=== PATIENT | female | born 1995 | race African-American/Black ===

== ENCOUNTER 2016-12-08 07:42 | Emergency (ER) | payer OTHER ==
[~2016-12-08] VITALS: Ht 160 cm; Wt 69.4 kg
[~2016-12-08 07:42] MED LIST: CYCL-319 PO; D-ME118S6 PO; DOCU-144 PO; HYDR-3498 PO; HYDR-3720 PO; HYDR-906 PO; HYDR25SU24 PR; METH-70 PO; NITR-58 PO; PRED20TA PO; TRAM50TA2 PO
[2016-12-08 07:46] VITALS: Ht 160 cm; Wt 69.4 kg
[2016-12-08 08:53] LABS: ADD SCAN DIFF NO
[2016-12-08 08:56] LABS: BASOPHILS % 0.4 % (0.0-2.0); EOSINOPHILS # 0.1 10^3/ul (0.0-0.5); EOSINOPHILS % 2.2 % (0.0-7.0); HEMATOCRIT 37.5 % (37.0-47.0); HEMOGLOBIN 12.3 g/dl (12.0-16.0); LYMPHOCYTES # 2.5 10^3/ul (0.8-2.9); LYMPHOCYTES % 55.1 % (15.0-51.0); MEAN CORPUSCULAR HEMOGLOBIN 30.8 pg (29.0-33.0); MEAN CORPUSCULAR HGB CONC 32.8 g/dl (32.0-37.0); MEAN PLATELET VOLUME 9.4 fl (7.4-10.4); MONOCYTE # 0.3 10^3/ul (0.3-0.9); MONOCYTES % 5.7 % (0.0-11.0); NEUTROPHIL # 1.7 10^3/ul (1.6-7.5); NEUTROPHILS % 36.4 % (39.0-77.0); PLATELET COUNT 262 10^3/UL (140-415); RED BLOOD COUNT 3.99 10^6/ul (4.20-5.40); RED CELL DISTRIBUTION WIDTH 12.5 % (11.5-14.5); WHITE BLOOD COUNT 4.5 10^3/ul (4.8-10.8)
[2016-12-08 09:18] LABS: ADD UMIC YES; URINE BILIRUBIN (Dip) NEGATIVE (NEGATIVE); URINE BLOOD (Dip) 3+ (NEGATIVE); URINE COLOR DK. RED (YELLOW); URINE GLUCOSE (Dip) NEGATIVE (NEGATIVE); URINE KETONES (Dip) NEGATIVE (NEGATIVE); URINE LEUKOCYTE ESTERASE (Dip) NEGATIVE (NEGATIVE); URINE NITRITE (Dip) NEGATIVE (NEGATIVE); URINE TOTAL PROTEIN (Dip) 2+ (NEGATIVE); URINE UROBILINOGEN (Dip) 1.0 E.U./dL (0.1-1.0)
[2016-12-08] MEDS ORDERED: ACETAMINOPHEN 500 MG TAB PO STA (09:31)
[2016-12-08 09:34] LABS: BACTERIA,URINE MODERATE; MUCUS,URINE FEW
[2016-12-08 09:35] LABS: URINE RBCS >200 /HPF (0)
--- NOTE | 2016-12-08 09:37 | RADRPT ---
PROCEDURE: US Pelvis. CLINICAL INDICATION: Vaginal bleeding TECHNIQUE: Multiple sonographic images of the pelvis were obtained utilizing a transabdominal and endovaginal technique. The images were reviewed on a PACS workstation. COMPARISON: 12/28/2013 FINDINGS: The uterus is normal in size with a normal appearance of the myometrium. The uterus measures 8.0 x 3.9 x 6.0 cm. The endometrial stripe is homogeneous in appearance and has the thickness of 8 mm. The ovaries are normal in size and echogenicity. Normal Doppler flow is identified in both ovaries. The right ovary measures 3.6 x 1.7 x 2.0 cm. The left ovary measures 3.4 x 1.4 x 2.2 cm. No free fluid is present within the pelvis. RPTAT: AA IMPRESSION: Unremarkable pelvic ultrasound. No evidence of intrauterine gestation. .Ashvin Tai MD, Date Time Electronically viewed and signed by .Ashvin Tai MD, on 12/08/2016 09:37 .S/
[2016-12-08] MEDS ORDERED: ACET325T33 PO (10:23)
[2016-12-08 10:33] VITALS: BP 118/74; PULSE 75; RESP 19; TEMP 98.2
--- NOTE | 2016-12-08 14:16 | ERD ---
DATE OF SERVICE: 12/08/2016 HISTORY OF PRESENT ILLNESS: The patient is a 21-year-old female coming in complaining of abdominal pain with some vaginal bleeding. She states that she had a medical performed on 11/22. At the time, she is approximately 7 weeks . Her last normal menstrual period was 10/06/2016. She had medication given to her at [facility] on [address]. [facility] which she did not go to. She states that she did have some bleeding afte r taking the medication which resolved. However, this morning she woke up with heavy bleeding and c lots. She has some generalized abdominal pain. No fevers, no vomiting, no back pain, no dysuria. G2, P1, A1. PAST MEDICAL HISTORY: Denies medical problems. ALLERGIES: IBUPROFEN. SURGICAL HISTORY: Denies. SOCIAL HISTORY: Denies. REVIEW OF SYSTEMS: A 12-point review of systems was done. Refer to HPI for positives, all other sy stems negative. PHYSICAL EXAMINATION: VITAL SIGNS: Temperature is 98.1, pulse 71, blood pressure 125/84, respiratory 16, O2 saturation 99 % on room air. Pain intensity 10/10. GENERAL: The patient is well appearing, well nourished. No acute distress. HEART: Regular rate and rhythm. No murmurs, clicks, rubs or gallops. No S3 or S4. CHEST: Clear to auscultation bilaterally. There are no rales, wheezes or rhonchi. HEENT: Atraumatic. Conjunctivae are pink. Pupils equal, round, and reactive to light. There is n o scleral icterus. Tympanic membranes clear bilaterally. Oropharynx clear. No nystagmus or photop hobia. ABDOMEN: Soft, nontender and nondistended. Good bowel sounds. No rebound or guarding. No gross p eritonitis. No gross organomegaly or masses. No Corrales sign or McBurney point tenderness. SKIN: There is no apparent rash or petechia. The skin is warm and dry. BACK: No midline or flank tenderness. GENITOURINARY: The patient does have some bleeding noted within the vaginal vault with no pooling. Os appears to be closed. No adnexal tenderness, no CMT. EMERGENCY ROOM COURSE: The patient had blood work done in ER. CBC was within normal limits. Beta quant was 126. The patient's urine showed 3+ hemoglobin, negative nitrites. The patient's blood ty pe was B positive, and obstetric ultrasound showed unremarkable pelvic ultrasound, no evidence of in trauterine gestation. DIAGNOSES: 1. Vaginal bleeding. 2. Incomplete . MEDICAL DECISION MAKING: I have low suspicion for septic products. The patient may have retained p roducts. However, they are unseen on ultrasound. The patient does continue to have a slightly elev ated beta quant. I recommended patient to return in 2 days so we could better monitor her beta dileep t levels and determine if there is a risk for possible retained products. The patient is nontoxic a ppearing, and exam is nonconcerning with normal vital signs today. I have low suspicion for hemodyn amic instability, and patient does not require RhoGAM injection as she is not and has Rh po sitive. No signs of UTI. DISCHARGE: The patient is discharged stable. The patient is given a prescription for Tylenol and t old to follow up with primary care within 1 to 2 days for re-evaluation. The patient is told if sym ptoms progress or worsen to return to the ER. All other questions answered at time of discharge. D ischarge summary given at time of departure. The patient understood and complied with plan. Dictated By: GLORIA RICHARDSON for BETTY WAY/MARK Conf#: [id number] DID#: [id number]
== END 2016-12-08 10:34 | disposition home or self-care (01) ==
LOC: FTE 07:42
DX: O03.4 Incomplete spontaneous abortion without complication (principal)
CPT/HCPCS: 36415; 76801; 81001; 81003; 84702; 85025; 86900; 86901; Z7502; Z7610

== ENCOUNTER 2016-12-10 06:50 | Emergency (ER) | payer OTHER ==
[~2016-12-10] VITALS: Ht 157.5 cm; Wt 70.0 kg
[~2016-12-10 06:50] MED LIST changes: +ACET325T33 PO
[2016-12-10 06:51] VITALS: Ht 157.5 cm; Wt 70.0 kg
[2016-12-10 07:59] LABS: ADD SCAN DIFF NO
[2016-12-10 08:09] LABS: BASOPHILS % 0.5 % (0.0-2.0); EOSINOPHILS # 0.1 10^3/ul (0.0-0.5); EOSINOPHILS % 3.5 % (0.0-7.0); HEMATOCRIT 38.8 % (37.0-47.0); HEMOGLOBIN 12.5 g/dl (12.0-16.0); LYMPHOCYTES # 2.1 10^3/ul (0.8-2.9); LYMPHOCYTES % 57.6 % (15.0-51.0); MEAN CORPUSCULAR HEMOGLOBIN 30.3 pg (29.0-33.0); MEAN CORPUSCULAR HGB CONC 32.2 g/dl (32.0-37.0); MEAN CORPUSCULAR VOLUME 94.2 fl (82.0-101.0); MEAN PLATELET VOLUME 9.7 fl (7.4-10.4); MONOCYTE # 0.2 10^3/ul (0.3-0.9); NEUTROPHIL # 1.2 10^3/ul (1.6-7.5); NEUTROPHILS % 32.4 % (39.0-77.0); PLATELET COUNT 255 10^3/UL (140-415); RED BLOOD COUNT 4.12 10^6/ul (4.20-5.40); RED CELL DISTRIBUTION WIDTH 12.8 % (11.5-14.5); WHITE BLOOD COUNT 3.7 10^3/ul (4.8-10.8)
[2016-12-10 08:11] LABS: ADD UMIC YES; URINE BILIRUBIN (Dip) NEGATIVE (NEGATIVE); URINE BLOOD (Dip) 1+ (NEGATIVE); URINE COLOR LT. YELLOW (YELLOW); URINE GLUCOSE (Dip) NEGATIVE (NEGATIVE); URINE KETONES (Dip) NEGATIVE (NEGATIVE); URINE LEUKOCYTE ESTERASE (Dip) NEGATIVE (NEGATIVE); URINE NITRITE (Dip) NEGATIVE (NEGATIVE); URINE TOTAL PROTEIN (Dip) NEGATIVE (NEGATIVE); URINE UROBILINOGEN (Dip) 0.2 E.U./dL (0.1-1.0)
[2016-12-10 08:26] LABS: BACTERIA,URINE RARE; URINE RBCS 0-2 /HPF (0)
--- NOTE | 2016-12-10 09:10 | RADRPT ---
PROCEDURE: US Pelvis. CLINICAL INDICATION: Positive and vaginal bleeding. TECHNIQUE: Multiple sonographic images of the pelvis were obtained utilizing a transabdominal and endovaginal technique. The images were reviewed on a PACS workstation. COMPARISON: 12/08/2016 ultrasound FINDINGS: The uterus is visualized and measures a 0.7 x 4.3 x 5.9.. 2 mm sonolucency within the distal endome trial canal. This may represent a small gestational sac corresponding to 4 weeks 5 days gestational age by gestational sac measurements. There is no pole or yolk sac. Given the history of vag inal bleeding, missed cannot be excluded. The endometrial complex is otherwise unremarkabl e measuring 8-9 mm in greatest thickness. Multiple Nabothian cysts. Normal Doppler blood flow in the ovaries bilaterally. There is no evidence for free fluid. The righ t ovary has a normal echotexture and measures 2.8 and 1.7 x 1.9 cm in size. The left ovary has a normal echotexture and measures 2.5 x 1.6 x 2.1 cm in size. No adnexal masses are noted. Trace free fluid in the cul-de-sac. IMPRESSION: 1. 2 mm sonolucency within the distal endometrial canal raising the question of early or m issed AB. No pole or yolk sac. Serial serum beta HCG measurements and follow-up ultrasound re commended. 2. No significant free fluid in the cul-de-sac or adnexal mass. 3. Cervical Nabothian cysts. RPTAT:AAJJ Physician Joo Date Time Electronically viewed and signed by Physician Joo on 12/10/2016 09:09 MAYELIN/
--- NOTE | 2016-12-10 10:15 | ERD ---
ER Documentation Chief Complaint Date/Time DATE: 12/10/16 TIME: 10:10 Chief Complaint pelvic pain w/light vaginal bleeding today & 2 day recheck of hcg level HPI Patient is a 21-year-old female who is , who presents to the ED with pelvic pain and light vaginal bleeding. She states that she had a medical performed on 11/22/16. She states that at the time she was 7 weeks . Her last normal menstrual period was 10/06/16. She states that she was given medication she is not sure of the name at [facility]. She states that she did not go to her follow-up appointment on 12/06/16. She states that she came to the ED on 12/08/16 for vaginal bleeding and clots. She states that she is here for repeat examination. She states she is here for repeat examination and to check up on her beta quant levels. She denies fever or chills. Denies abdominal pain, nausea, vomiting or diarrhea. She states that she does have some light pelvic pain. She states that her bleeding has markedly decreased in the last day. She denies headache or dizziness. She has no other complaints. ROS All systems reviewed and are negative except as per history of present illness. Medications Home Meds Active Scripts Acetaminophen* (Tylenol*) 325 Mg Tablet, 2 TAB PO Q8 Y for PAIN AND OR ELEVATED TEMP, #20 TAB Prov:GERRI RECINOS PA-C 12/08/16 Hydrocodone/Acetaminophen (Drain 5-325 Tablet) 1 Each Tablet, 1 TAB PO Q6H Y for PAIN, #7 TAB Prov:LIBIA SIMON PA-C 06/28/16 Hydrocortisone Acetate* (Anusol-HC*) 25 Mg/Supp.rect Supp.rect, 1 SUPP MS BID Y for HEMORROID PAIN/ITCHING, #24 SUPP.RECT Prov:LIBIA SIMON PA-C 05/18/16 Docusate Sodium* (Colace*) 100 Mg Capsule, 100 MG PO TID, #30 CAP Prov:LIBIA SIMON PA-C 05/18/16 Prednisone* (Prednisone*) 20 Mg Tab, 60 MG PO DAILY for 5 Days, TAB Prov:EMMIE VORA DO 03/03/16 Methocarbamol* (Robaxin*) 750 Mg Tablet, 750 MG PO TID, #20 TAB Prov:EMMIE VORA. DO 03/03/16 Hydrocodone Bit-Acetaminophen* (Drain*) 7.5-325 Tablet, 1 TAB PO Q4H Y for PAIN , #20 TAB Prov:EMMIE VORA A. DO 03/03/16 Hydrocodone Bit-Acetaminophen* (Drain*) 5-325 Mg Tab, 1 TAB PO Q6 Y for PAIN, # 10 TAB Prov:GT LUND PA-C 01/26/16 Cyclobenzaprine Hcl* (Cyclobenzaprine Hcl*) 10 Mg Tablet, 10 MG PO Q8 Y for MUSCLE SPASMS, #20 TAB Prov:GT LUND PA-C 01/26/16 Tramadol HCl (Tramadol HCl) 50 Mg Tablet, 50 MG PO Q4 Y for PAIN, #20 TAB Prov:GT LUND PA-C 01/26/16 Nitrofurantoin Monohyd Macrocr* (Macrobid*) 100 Mg Capsr, 100 MG PO BID for 7 Days, CAP Prov:GT LUND PA-C 01/26/16 Hydrocodone Bit-Acetaminophen* (Drain*) 5-325 Mg Tab, 1 TAB PO Q6 Y for PAIN, # 20 TAB Prov:ERLINDA PAPPAS 10/23/15 Dextromethorphan Hb-Promethazine Hcl (Promethazine DM Syrup) 180 Ml Syrup, 10 ML PO Q6H Y for COUGH, #4 OZ Prov:REMY GRIFFITH MD 10/17/15 Tramadol HCl (Tramadol HCl) 50 Mg Tablet, 50 MG PO Q6 Y for PAIN, #10 TAB Prov:REMY GRIFFITH MD 10/17/15 Allergies Allergies: Coded Allergies: ibuprofen (Verified Allergy, Intermediate, 06/28/16) PMhx/Soc Medical and Surgical Hx: pt denies Medical Hx, pt denies Surgical Hx History of Surgery: No Anesthesia Reaction: No Hx Neurological Disorder: No Hx Respiratory Disorders: No Hx Cardiac Disorders: No Hx Psychiatric Problems: No Hx Miscellaneous Medical Probl: No Hx Alcohol Use: No Hx Substance Use: No Hx Tobacco Use: No Smoking Status: Never smoker FmHx Family History: No coronary disease, No diabetes, No other Physical Exam Vitals Vital Signs Date Time Temp Pulse Resp B/P Pulse Ox O2 Delivery O2 Flow Rate FiO2 12/10/16 06:51 98.4 67 19 109/61 100 Physical Exam GENERAL: Well-developed, well-nourished female. Appears in no acute distress. HEART: Regular rate and rhythm. No murmurs, rubs or gallops. ABDOMEN: No scars, ecchymosis or rashes noted. Soft, nontender, and nondistended. Positive bowel sounds in all four quadrants. No rebound tenderness , no guarding. (-) McBurneys point tenderness. No CVA tenderness. : very light bleeding seen on exam. non tender to adnexa. no CMT. no vaginal discharge. BACK: No midline tenderness. Extremities: Equal pulses bilaterally. No peripheral clubbing, cyanosis or edema. No unilateral leg swelling. NEUROLOGIC: Alert and oriented. Moving all four extremities. 5/5 strength in all extremities. Normal speech. Steady gait. SKIN: Normal color. Warm and dry. No rashes or lesions. Capillary refill < 2 seconds Result Diagram: 12/10/16 0740 Results 24 hrs Laboratory Tests Test 12/10/16 07:40 Basophils # 0.010^3/ul Basophils % 0.5% Beta HCG, Quantitative 86.4mIU/ml Eosinophils # 0.110^3/ul Eosinophils % 3.5% Hematocrit 38.8% Hemoglobin 12.5g/dl Lymphocytes # 2.110^3/ul Lymphocytes % 57.6% Mean Corpuscular Hemoglobin 30.3pg Mean Corpuscular Hemoglobin Concent 32.2g/dl Mean Corpuscular Volume 94.2fl Mean Platelet Volume 9.7fl Monocytes # 0.210^3/ul Monocytes % 6.0% Neutrophils # 1.210^3/ul Neutrophils % 32.4% Nucleated Red Blood Cells # 0.010^3/ul Nucleated Red Blood Cells % 0.0/100WBC Platelet Count 98814^3/UL Red Blood Count 4.1210^6/ul Red Cell Distribution Width 12.8% Urine Bacteria RARE Urine Bilirubin NEGATIVE Urine Clarity CLEAR Urine Color LT. YELLOW Urine Epithelial Cells RARE Urine Glucose NEGATIVE% Urine Hemoglobin 1+ Urine Ketones NEGATIVE Urine Leukocyte Esterase NEGATIVE Urine Microscopic RBC 0-2/HPF Urine Microscopic WBC 0-2/HPF Urine Nitrite NEGATIVE Urine Specific [place] 1.015 Urine Total Protein NEGATIVE Urine Urobilinogen 0.2 E.U./dL Urine pH 8.0 White Blood Count 3.710^3/ul Procedures/MDM ER COURSE: I kept the patient and/or family informed of laboratory and diagnostic imaging results throughout the emergency room course. EKG, MONITORS, & DIAGNOSTIC IMAGING: [place] [id number] Radiology Main Line: [phone] DIAGNOSTIC IMAGING REPORT Patient: VALARIE PUGH : 1995 Age: 21 Sex: F MR #: [id number] DOS: 12/10/16 0720 Ordering MD: RYLAN HUA PA-C Location: [facility] Room/Bed: PROCEDURE: US Pelvis. CLINICAL INDICATION: Positive and vaginal bleeding. TECHNIQUE: Multiple sonographic images of the pelvis were obtained utilizing a transabdominal and endovaginal technique. The images were reviewed on a PACS workstation. COMPARISON: 12/08/2016 ultrasound FINDINGS: The uterus is visualized and measures a 0.7 x 4.3 x 5.9.. 2 mm sonolucency within the distal endometrial canal. This may represent a small gestational sac corresponding to 4 weeks 5 days gestational age by gestational sac measurements. There is no pole or yolk sac. Given the history of vaginal bleeding, missed cannot be excluded. The endometrial complex is otherwise unremarkable measuring 8-9 mm in greatest thickness. Multiple Nabothian cysts. Normal Doppler blood flow in the ovaries bilaterally. There is no evidence for free fluid. The right ovary has a normal echotexture and measures 2.8 and 1.7 x 1.9 cm in size. The left ovary has a normal echotexture and measures 2.5 x 1.6 x 2.1 cm in size. No adnexal masses are noted. Trace free fluid in the cul-de-sac. IMPRESSION: 1. 2 mm sonolucency within the distal endometrial canal raising the question of early or missed AB. No pole or yolk sac. Serial serum beta HCG measurements and follow-up ultrasound recommended. 2. No significant free fluid in the cul-de-sac or adnexal mass. 3. Cervical Nabothian cysts. RPTAT:AAJJ Lesly Brandon Physician Date Time Electronically viewed and signed by Lesly Brandon Physician on 12/10/2016 09:09 MAYEILN/ CC: RYLAN HUA PA-C LAB INTERPRETATION: CBC showed no evidence of systemic infection or severe anemia. UA showed no evidence of leukocytes, nitrites or hematuria. Urine test was negative. Beta hCG is 86. RH. Be positive. MEDICAL DECISION MAKING: This is a 21-year-old female who presents with .. Vital signs were reviewed. Patient is afebrile. Patient is not hypoxic. I consulted with Dr. Zavala who came to examine patient at bedside and did pelvic. Patient will be admitted for D/C. Patient is stable at transfer with no new complaints. Results and plan were discussed with patient. Patient has no questions and agrees with plan. Departure Diagnosis: Primary Impression: Vaginal bleeding in patient at less than 20 weeks gestation Condition: Stable RYLAN HUA PA-C Dec 10, 2016 10:15
--- NOTE | 2016-12-10 10:21 | CONS ---
Date/Time of Note Date/Time of Note DATE: 12/10/16 TIME: 10:10 Consultation Date/Type/Reason Admit Date/Time December 10, 2016 Emergency room consultation Initial Consult Date This patient is a 21 years old 2 para 1 whose last menstrual period was in October 06, 2006. She came to the emergency room with complaint of vaginal bleeding She was and had pill twice in 1 of the clinics apparently her was not complete Bit beta-hCG around 87 however ultrasound shows small amount of tissue still left inside the uterus for this reason she will be admitted and will undergo a D &C . In reviewing her past medical history, she had an spontaneous vaginal delivery 2 years ago no other pregnancies no other major medical problems or hospitalization Except a few hospital visit due to back pain. No surgery She says she is sensitive or allergic to ibuprofen and no other sensitivity or allergies On pelvic exam she has some bleeding and this was about top normal size cervix is soft no adnexal mass noted Reason for Consultation Vaginal bleeding, Incomplete Blood type Rh+ 24 HR Interval Summary Constitutional: other (low back pain), No chills, No diaphoresis, No disoriented, No febrile, No improved, No no complaints, No poor po, No requiring IVF, No requiring O2 Detailed Summary Eyes: other (Lower abdominal pain), No discharge, No no complaints, No pain, No redness, No visual change ENT: No bleeding, No congestion, No discharge, No dysphagia, No no complaints, No other, No pain, No sore throat Respiratory: No cough, No no complaints, No other, No pain, No pleuritic pain, No shortness of breath, No sputum, No wheezing Cardiovascular: No chest pain, No edema, No lightheadedness, No no complaints, No orthopenea, No other, No palpitations, No paroxysmal nocturnal dyspnea Gastrointestinal: No blood, No constipation, No decreased appetite, No diarrhea , No flatus, No nausea, No no complaints, No other, No pain, No passing stool, No vomiting Genitourinary: other (Mild vaginal bleeding. As I mentioned evidence of incomplete in early ), No bleeding, No discharge, No dysuria, No flank pain, No hematuria, No no complaints Musculoskeletal: No back pain, No bone/joint pain, No neck pain, No no complaints, No other, No restricted range of motion, No swelling Skin: No bruising, No erythema, No laceration, No no complaints, No other, No pruritis, No rash, No skin lesions Neurologic: No confusion, No dizziness, No focal-weakness, No headache, No no complaints, No other, No seizure, No syncope Endocrine: No dry skin, No no complaints, No other, No polydypsia, No polyuria , No temp intolerance Psychological: No anxiety, No confusion, No depression, No nl mood/affect, No no complaints, No other, No suicidal Exam/Review of Systems Vital Signs Vitals Vital Signs Date Time Temp Pulse Resp B/P Pulse Ox O2 Delivery O2 Flow Rate FiO2 12/10/16 06:51 98.4 67 19 109/61 100 Results Result Diagram: 12/10/16 0740 Results 24 hrs Laboratory Tests Test 12/10/16 07:40 Basophils # 0.0 Basophils % 0.5 Beta HCG, Quantitative 86.4 Eosinophils # 0.1 Eosinophils % 3.5 Hematocrit 38.8 Hemoglobin 12.5 Lymphocytes # 2.1 Lymphocytes % 57.6 H Mean Corpuscular Hemoglobin 30.3 Mean Corpuscular Hemoglobin Concent 32.2 Mean Corpuscular Volume 94.2 Mean Platelet Volume 9.7 Monocytes # 0.2 L Monocytes % 6.0 Neutrophils # 1.2 L Neutrophils % 32.4 L Nucleated Red Blood Cells # 0.0 Nucleated Red Blood Cells % 0.0 Platelet Count 255 Red Blood Count 4.12 L Red Cell Distribution Width 12.8 Urine Bacteria RARE Urine Bilirubin NEGATIVE Urine Clarity CLEAR Urine Color LT. YELLOW Urine Epithelial Cells RARE Urine Glucose NEGATIVE Urine Hemoglobin 1+ H Urine Ketones NEGATIVE Urine Leukocyte Esterase NEGATIVE Urine Microscopic RBC 0-2 Urine Microscopic WBC 0-2 Urine Nitrite NEGATIVE Urine Specific [place] 1.015 Urine Total Protein NEGATIVE Urine Urobilinogen 0.2 E.U./dL Urine pH 8.0 White Blood Count 3.7 L MADHAV WILKINS MD Dec 10, 2016 10:20
[2016-12-10 10:47] VITALS: BP 114/70; PULSE 71; RESP 16; TEMP 98.6
[2016-12-10] MEDS ORDERED: OXYCODONE/ACETAMINOPHEN (10/325) TAB PO PRN (11:30)
[2016-12-10] MEDS ORDERED: OXYCODONE/ACETAMINOPHEN (5/325) TAB PO PRN ×2 (11:30)
[2016-12-10] MEDS ORDERED: ONDANSETRON 4 MG INJ IV PRN (11:30)
== END 2016-12-10 10:49 | disposition left against medical advice (07) ==
LOC: FTE 06:50 → E/R 10:49
DX: O20.9 Hemorrhage in early pregnancy, unspecified (principal); R10.2 Pelvic and perineal pain; Z3A.01 Less than 8 weeks gestation of pregnancy
CPT/HCPCS: 36415; 76801; 76817; 81001; 84702; 85025; Z7502; Z7610; 81003

== ENCOUNTER 2016-12-11 06:43 | Emergency (ER) | payer OTHER ==
[~2016-12-11] VITALS: Ht 160 cm; Wt 70.0 kg
[2016-12-11 06:45] VITALS: Ht 160 cm; Wt 70.0 kg
--- NOTE | 2016-12-11 07:30 | ERD ---
ER Documentation Chief Complaint Date/Time DATE: 12/11/16 TIME: 07:22 Chief Complaint RECHECK ON VAG BLEED , 8 WEEKS PREG HPI Is a 21-year-old female who presents to the emergency department today for vaginal bleeding. Patient states that she had been . States she was here yesterday and that she "got scared and panicked" but now she wants to have it done. Denies any significant abdominal pain, nausea vomiting, fevers or chills. ROS All systems reviewed and are negative except as per history of present illness. Medications Home Meds Active Scripts Acetaminophen* (Tylenol*) 325 Mg Tablet, 2 TAB PO Q8 Y for PAIN AND OR ELEVATED TEMP, #20 TAB Prov:GERRI RECINOS PA-C 12/08/16 Hydrocodone/Acetaminophen (Lamont 5-325 Tablet) 1 Each Tablet, 1 TAB PO Q6H Y for PAIN, #7 TAB Prov:LIBIA SIMON PA-C 06/28/16 Hydrocortisone Acetate* (Anusol-HC*) 25 Mg/Supp.rect Supp.rect, 1 SUPP MI BID Y for HEMORROID PAIN/ITCHING, #24 SUPP.RECT Prov:LIBIA SIMON PA-C 05/18/16 Docusate Sodium* (Colace*) 100 Mg Capsule, 100 MG PO TID, #30 CAP Prov:LIBIA SIMON PA-C 05/18/16 Prednisone* (Prednisone*) 20 Mg Tab, 60 MG PO DAILY for 5 Days, TAB Prov:EMMIE VORA DO 03/03/16 Methocarbamol* (Robaxin*) 750 Mg Tablet, 750 MG PO TID, #20 TAB Prov:EMMIE VORA DO 03/03/16 Hydrocodone Bit-Acetaminophen* (Lamont*) 7.5-325 Tablet, 1 TAB PO Q4H Y for PAIN , #20 TAB Prov:EMMIE VORA DO 03/03/16 Hydrocodone Bit-Acetaminophen* (Lamont*) 5-325 Mg Tab, 1 TAB PO Q6 Y for PAIN, # 10 TAB Prov:GT LUDN PA-C 01/26/16 Cyclobenzaprine Hcl* (Cyclobenzaprine Hcl*) 10 Mg Tablet, 10 MG PO Q8 Y for MUSCLE SPASMS, #20 TAB Prov:GT LUND PA-C 01/26/16 Tramadol HCl (Tramadol HCl) 50 Mg Tablet, 50 MG PO Q4 Y for PAIN, #20 TAB Prov:GT LUND PA-C 01/26/16 Nitrofurantoin Monohyd Macrocr* (Macrobid*) 100 Mg Capsr, 100 MG PO BID for 7 Days, CAP Prov:GT LUND PA-C 01/26/16 Hydrocodone Bit-Acetaminophen* (Lamont*) 5-325 Mg Tab, 1 TAB PO Q6 Y for PAIN, # 20 TAB Prov:ERLINDA PAPPAS 10/23/15 Dextromethorphan Hb-Promethazine Hcl (Promethazine DM Syrup) 180 Ml Syrup, 10 ML PO Q6H Y for COUGH, #4 OZ Prov:REMY GRIFFITH MD 10/17/15 Tramadol HCl (Tramadol HCl) 50 Mg Tablet, 50 MG PO Q6 Y for PAIN, #10 TAB Prov:REMY GRIFFITH MD 10/17/15 Allergies Allergies: Coded Allergies: ibuprofen (Verified Allergy, Intermediate, 06/28/16) PMhx/Soc History of Surgery: No Anesthesia Reaction: No Hx Neurological Disorder: No Hx Respiratory Disorders: No Hx Cardiac Disorders: No Hx Psychiatric Problems: No Hx Miscellaneous Medical Probl: No Hx Alcohol Use: No Hx Substance Use: No Hx Tobacco Use: No Physical Exam Vitals Vital Signs Date Time Temp Pulse Resp B/P Pulse Ox O2 Delivery O2 Flow Rate FiO2 12/11/16 06:45 97.5 80 18 115/65 100 Physical Exam Const: No acute distress Head: Atraumatic Eyes: Normal Conjunctiva ENT: Normal External Ears, Nose and Mouth. Neck: Full range of motion..~ No meningismus. Resp: Clear to auscultation bilaterally Cardio: Regular rate and rhythm, no murmurs Abd: Soft, non tender, non distended. Normal bowel sounds Skin: No petechiae or rashes Neur: Awake and alert Psych: Normal Mood and Affect Result Diagram: 12/11/16 0725 Results 24 hrs Laboratory Tests Test 12/11/16 07:25 Basophils # 0.010^3/ul Basophils % 0.5% Eosinophils # 0.110^3/ul Eosinophils % 3.0% Hematocrit 37.7% Hemoglobin 12.3g/dl Lymphocytes # 2.310^3/ul Lymphocytes % 54.5% Mean Corpuscular Hemoglobin 30.7pg Mean Corpuscular Hemoglobin Concent 32.6g/dl Mean Corpuscular Volume 94.0fl Mean Platelet Volume 9.8fl Monocytes # 0.310^3/ul Monocytes % 5.8% Neutrophils # 1.610^3/ul Neutrophils % 36.2% Nucleated Red Blood Cells # 0.010^3/ul Nucleated Red Blood Cells % 0.0/100WBC Platelet Count 16154^3/UL Red Blood Count 4.0110^6/ul Red Cell Distribution Width 12.6% White Blood Count 4.310^3/ul DIAGNOSTIC IMAGING REPORT Patient: VALARIE PUGH : 1995 Age: 21 Sex: F MR #: [id number] DOS: 12/11/16 0709 Ordering MD: EDMOND ARGUELLO PA-C Location: [facility] Room/Bed: PROCEDURE: US OB. CLINICAL INDICATION: Vaginal Bleed () TECHNIQUE: Transabdominal and transvaginal views of the pelvis are available for review. COMPARISON: Pelvic ultrasound 12/10/2016 and 12/08/2016 FINDINGS: The uterus measures 8.2 x 4.8 x 6.1 cm . No intrauterine gestational sac is identified. Endometrium measures 6 mm. No ovarian or adnexal mass lesion is seen. There is no free fluid. The right ovary measures 3.50 1.7 x 2.2 cm. The left ovary measures 3.0 x 1.7 x 1.7 cm. Cervical Nabothian cysts are present. IMPRESSION: 1. No sonographic evidence for intrauterine gestation or retained products of conception. Recommend follow-up serial beta HCG levels. 2. Cervical Nabothian cysts are present. .Ruth Ann Shepard MD, MD Date Time Electronically viewed and signed by .Ruth Ann Shepard MD, MD on 12/11/2016 08:02 .M/ CC: EDMOND ARGUELLO PA-C Procedures/MDM This is a 21-year-old female who presents to the emergency department today for vaginal bleeding. Patient was seen here yesterday for similar complaint. Patient is a 21-year-old who had a medical performed on November 22, 2016. She indicated at that time she was 7 weeks . She states she was given medication at [facility] but was unsure of the name. She did not go to her follow-up appointment on December 06. On December 08 patient came to the emergency department for vaginal bleeding and clots. Patient was here yesterday for repeat examination. Patient had a full OB workup done at that time and her beta quant was 86 yesterday. This was downtrending from her previous visit. Patient's ultrasound yesterday indicated that there was a 2 mm sonolucency within the distal endometrial canal raising the question of early or missed . There is no pole or yolk sac. There is no significant free fluid. No adnexal masses. The laborist conduit helper, saw and evaluated the patient here in the emergency department yesterday and agreed to do a D&C. Today here in the emergency room patient presents because she wants to get the D &C now done today after "panicking yesterday". I spoke to the laborist conduit helper today , Dr. Clayton, who has requested repeat laboratory work and an ultrasound today. She will come to the emergency room to evaluate the patient. Laboratory work no elevated white blood cell count. She is not anemic. Beta quant hCG was pending at time of discharge. Ultrasound shows no sonographic evidence for intrauterine gestation or retained products of conception. There is no free fluid. There is no adnexal mass. There are cervical nabothian cysts present seen on previous ultrasounds. After Forrest has seen and evaluated the patient and his discussed with the patient that her ultrasound today did not show any abnormalities and therefore she does not need a D and C and she may follow-up for control with her regular PILE DRIVING SUPERINTENDENT. Patient understood. Patient was discharged in stable condition. I did discuss with Dr. Clayton that the beta quant was still pending and she felt that the patient was okay to be discharged from the emergency room as her ultrasound is negative. I have explained this to the patient. I explained to the patient that she may follow-up with her PILE DRIVING SUPERINTENDENT and she does not need to return to the emergency department for further evaluation or management. Patient understood. At this time the patient is stable for discharge and outpatient management. Patient should follow up with their PCP in the next 1-2 days. They may return to the emergency department sooner for any persistent or worsening of symptoms. Patient understood and agreed with the plan. Departure Diagnosis: Primary Impression: Vaginal bleeding in patient at less than 20 weeks gestation Condition: EDMOND Thornton PA-C Dec 11, 2016 07:30
--- NOTE | 2016-12-11 08:02 | RADRPT ---
PROCEDURE: US OB. CLINICAL INDICATION: Vaginal Bleed () TECHNIQUE: Transabdominal and transvaginal views of the pelvis are available for review. COMPARISON: Pelvic ultrasound 12/10/2016 and 12/08/2016 FINDINGS: The uterus measures 8.2 x 4.8 x 6.1 cm . No intrauterine gestational sac is identified. Endometrium measures 6 mm. No ovarian or adnexal mass lesion is seen. There is no free fluid. The right ovary measures 3.50 1.7 x 2.2 cm. The left ovary measures 3.0 x 1.7 x 1.7 cm. Cervical Nabothian cysts are present. IMPRESSION: 1. No sonographic evidence for intrauterine gestation or retained products of conception. Recommend follow-up serial beta HCG levels. 2. Cervical Nabothian cysts are present. .Ruth Ann Shepard MD, Date Time Electronically viewed and signed by .Ruth Ann Shepard MD, on 12/11/2016 08:02 .M/
[2016-12-11 08:22] LABS: ADD SCAN DIFF NO
[2016-12-11 08:24] LABS: BASOPHILS % 0.5 % (0.0-2.0); EOSINOPHILS # 0.1 10^3/ul (0.0-0.5); HEMATOCRIT 37.7 % (37.0-47.0); HEMOGLOBIN 12.3 g/dl (12.0-16.0); LYMPHOCYTES # 2.3 10^3/ul (0.8-2.9); LYMPHOCYTES % 54.5 % (15.0-51.0); MEAN CORPUSCULAR HEMOGLOBIN 30.7 pg (29.0-33.0); MEAN CORPUSCULAR HGB CONC 32.6 g/dl (32.0-37.0); MEAN PLATELET VOLUME 9.8 fl (7.4-10.4); MONOCYTE # 0.3 10^3/ul (0.3-0.9); MONOCYTES % 5.8 % (0.0-11.0); NEUTROPHIL # 1.6 10^3/ul (1.6-7.5); NEUTROPHILS % 36.2 % (39.0-77.0); PLATELET COUNT 260 10^3/UL (140-415); RED BLOOD COUNT 4.01 10^6/ul (4.20-5.40); RED CELL DISTRIBUTION WIDTH 12.6 % (11.5-14.5); WHITE BLOOD COUNT 4.3 10^3/ul (4.8-10.8)
--- NOTE | 2016-12-11 08:36 | CONS ---
Date/Time of Note Date/Time of Note DATE: 12/11/16 TIME: 08:26 Assessment/Plan Assessment/Plan Additional Assessment/Plan Discussed results of today's ultrasound with the patient and explained that at this time there is no concern for retained products of conception given empty uterine cavity without a visualized gestational sac. Thus a D&C is not indicated. Reassured the patient that ongoing light vaginal bleeding is also normal for several weeks after medical termination. Also discussed with TIM Leonardo that Bhcgs are not generally used to determine whether an is complete or incomplete after a medical termination, as these values may be elevated for weeks after the patient takes termination pills. Bleeding precautions reviewed with the patient. Pt encouraged to refrain from sexual intercourse until she has secured reliable contraception Questions answered to patient's satisfaction From a LEAD ANDROID DEVELOPER standpoint, the patient is appropriate for d/c home Consultation Date/Type/Reason Admit Date/Time Date of Consultation: Dec 11, 2016 Type of Consultation: Gynecology Reason for Consultation D&C Referring Provider: EDMOND LEONARDO PA-C Hx of Present Illness Pt is a 21yo s/p medical AB for 7wk IUP at [facility] on 11/22/16 who initially presented to the ED on 12/08/16 for vaginal bleeding and clots after not going to follow-up appointment at [facility] on 12/06/16. On evaluation, U/S did not show evidence of IUP and Bhcg was 126. Pt was asked to return to the ED to trend Bhcg on 12/10/16. Yesterday Bhcg 86.4 and U/S showed 2mm sonolucency in distal endometrial canal concerning for possible GS correlating with 5wk IUP. A D&C was recommended by the on-call Laborist and pt became scared and left the hospital before having the procedure. Today, the pt returned to the ED for the D&C. Pt states bleeding is very light. Denies lower abdominal cramping. Has OBGYN near her house where she will follow-up for contraception. TVUS 12/11/16 PROCEDURE: US OB. CLINICAL INDICATION: Vaginal Bleed () TECHNIQUE: Transabdominal and transvaginal views of the pelvis are available for review. COMPARISON: Pelvic ultrasound 12/10/2016 and 12/08/2016 FINDINGS: The uterus measures 8.2 x 4.8 x 6.1 cm . No intrauterine gestational sac is identified. Endometrium measures 6 mm. No ovarian or adnexal mass lesion is seen. There is no free fluid. The right ovary measures 3.50 1.7 x 2.2 cm. The left ovary measures 3.0 x 1.7 x 1.7 cm. Cervical Nabothian cysts are present. IMPRESSION: 1. No sonographic evidence for intrauterine gestation or retained products of conception. Recommend follow-up serial beta HCG levels. 2. Cervical Nabothian cysts are present. Past Medical History Medical History: no pertinent history Exam/Review of Systems Vital Signs Vitals Vital Signs Date Time Temp Pulse Resp B/P Pulse Ox O2 Delivery O2 Flow Rate FiO2 12/11/16 06:45 97.5 80 18 115/65 100 Exam Pt well appearing Exam deferred- pelvic exam performed yesterday in ED by ILSA Reyes MD Dec 11, 2016 08:36
[2016-12-11 10:07] VITALS: BP 121/68; PULSE 89; TEMP 98.5
== END 2016-12-11 10:08 | disposition home or self-care (01) ==
LOC: FTE 06:43
DX: O20.9 Hemorrhage in early pregnancy, unspecified (principal); Z3A.08 8 weeks gestation of pregnancy
CPT/HCPCS: 36415; 76801; 76817; 84702; 85025; Z7502

== ENCOUNTER 2017-05-08 14:17 | Emergency (ER) | payer OTHER ==
[~2017-05-08] VITALS: Ht 157.5 cm; Wt 69.5 kg
[~2017-05-08 14:17] MED LIST changes: +BENZ100C70 PO; +LACT10SO5 PO; -METH-70 PO; +METH500T PO; +METH750T93 PO; +NAPR-260 PO; +PREN1TAB9 PO
[2017-05-08 14:37] VITALS: Ht 157.5 cm; Wt 69.5 kg
[2017-05-08] MEDS ORDERED: ACETAMINOPHEN 500 MG TAB PO STA (15:39)
[2017-05-08 15:50] LABS: URINE BLOOD (Dip) POC 3+ (NEGATIVE)
[2017-05-08] MEDS ORDERED: NITR-58 PO (16:05)
[2017-05-08] MEDS ORDERED: PHEN-537 PO (16:05)
--- NOTE | 2017-05-08 16:13 | ERD ---
ER Documentation Chief Complaint Date/Time DATE: 05/08/17 TIME: 16:11 Chief Complaint Pt with Dysuria, blood in urine X 4 days. HPI Patient is a 22-year-old female who presents to the ED with dysuria, urgency and frequency 3 days. She denies fever or chills. Denies back pain. States that she has a small amount of urine. Also had an episode of hematuria today. Denies abnormal vaginal discharge, vaginal bleeding. Denies abdominal pain, nausea, vomiting or diarrhea. Denies headache or dizziness. No other complaints. ROS All systems reviewed and are negative except as per history of present illness. Medications Home Meds Active Scripts Phenazopyridine Hcl* (Pyridium*) 100 Mg Tab, 100 MG PO TID Y for URINARY PAIN, # 8 TAB Prov:RYLAN HUA PA-C 05/08/17 Nitrofurantoin Monohyd Macrocr* (Macrobid*) 100 Mg Capsr, 100 MG PO BID for 7 Days, CAP Prov:RYLAN HUA PA-C 05/08/17 Acetaminophen* (Tylenol*) 325 Mg Tablet, 2 TAB PO Q8 Y for PAIN AND OR ELEVATED TEMP, #20 TAB Prov:GERRI RECINOS PA-C 12/08/16 Hydrocodone/Acetaminophen (Tomales 5-325 Tablet) 1 Each Tablet, 1 TAB PO Q6H Y for PAIN, #7 TAB Prov:LIBIA SIMON PA-C 06/28/16 Hydrocortisone Acetate* (Anusol-HC*) 25 Mg/Supp.rect Supp.rect, 1 SUPP NM BID Y for HEMORROID PAIN/ITCHING, #24 SUPP.RECT Prov:LIBIA SIMON PA-C 05/18/16 Docusate Sodium* (Colace*) 100 Mg Capsule, 100 MG PO TID, #30 CAP Prov:LIBIA SIMON PA-C 05/18/16 Prednisone* (Prednisone*) 20 Mg Tab, 60 MG PO DAILY for 5 Days, TAB Prov:EMMIE VORA DO 03/03/16 Methocarbamol* (Robaxin*) 750 Mg Tablet, 750 MG PO TID, #20 TAB Prov:EMMIE VORA DO 03/03/16 Hydrocodone Bit-Acetaminophen* (Tomales*) 7.5-325 Tablet, 1 TAB PO Q4H Y for PAIN , #20 TAB Prov:RENAE VORAJOSEPerico McclureTrish DO 03/03/16 Hydrocodone Bit-Acetaminophen* (Tomales*) 5-325 Mg Tab, 1 TAB PO Q6 Y for PAIN, # 10 TAB Prov:GT LUND PA-C 01/26/16 Cyclobenzaprine Hcl* (Cyclobenzaprine Hcl*) 10 Mg Tablet, 10 MG PO Q8 Y for MUSCLE SPASMS, #20 TAB Prov:GT LUND PA-C 01/26/16 Tramadol HCl (Tramadol HCl) 50 Mg Tablet, 50 MG PO Q4 Y for PAIN, #20 TAB Prov:GT LUND PA-C 01/26/16 Nitrofurantoin Monohyd Macrocr* (Macrobid*) 100 Mg Capsr, 100 MG PO BID for 7 Days, CAP Prov:GT LUND PA-C 01/26/16 Hydrocodone Bit-Acetaminophen* (Tomales*) 5-325 Mg Tab, 1 TAB PO Q6 Y for PAIN, # 20 TAB Prov:ERLINDA PAPPAS 10/23/15 Dextromethorphan Hb-Promethazine Hcl (Promethazine DM Syrup) 180 Ml Syrup, 10 ML PO Q6H Y for COUGH, #4 OZ Prov:REMY GRIFFITH MD 10/17/15 Tramadol HCl (Tramadol HCl) 50 Mg Tablet, 50 MG PO Q6 Y for PAIN, #10 TAB Prov:REMY GRIFFITH MD 10/17/15 Allergies Allergies: Coded Allergies: ibuprofen (Verified Allergy, Intermediate, 06/28/16) PMhx/Soc History of Surgery: No Anesthesia Reaction: No Hx Neurological Disorder: No Hx Respiratory Disorders: No Hx Cardiac Disorders: No Hx Psychiatric Problems: No Hx Miscellaneous Medical Probl: No Hx Alcohol Use: No Hx Substance Use: No Hx Tobacco Use: No Smoking Status: Never smoker FmHx Family History: No coronary disease, No diabetes, No other Physical Exam Vitals Vital Signs Date Time Temp Pulse Resp B/P Pulse Ox O2 Delivery O2 Flow Rate FiO2 05/08/17 14:37 98.4 90 18 107/67 99 Physical Exam GENERAL: Well-developed, well-nourished female. Appears in no acute distress. HEAD: Normocephalic, atraumatic. EYES: Pupils are equally reactive bilaterally. EOMs grossly intact. No conjunctival erythema. ENT: Moist mucous membranes. No uvula deviation. No kissing tonsils. No exudates. NECK: Supple. No lymphadenopathy or thyromegaly. No meningismus. negative kernig. negative brudinski. LUNG: Clear to auscultation bilaterally. No rhonchi, wheezing, rales or coarse breath sounds. HEART: Regular rate and rhythm. No murmurs, rubs or gallops. Extremities: Equal pulses bilaterally. No peripheral clubbing, cyanosis or edema. No unilateral leg swelling. NEUROLOGIC: Alert and oriented. Moving all four extremities. 5/5 strength in all extremities. Normal speech. Steady gait. SKIN: Normal color. Warm and dry. No rashes or lesions. Capillary refill < 2 seconds Results 24 hrs Laboratory Tests Test 05/08/17 15:55 Bedside Urine pH (LAB) 7.0 Bedside Urine Protein (LAB) 1+ Bedside Urine Glucose (UA) Negative Bedside Urine Ketones (LAB) 3+ Bedside Urine Blood 3+ Bedside Urine Nitrite (LAB) Negative Bedside Urine Leukocyte Esterase (L 3+ Current Medications Medications (Trade) Dose Ordered Sig/Leonel Route PRN Reason Start Time Stop Time Status Last Admin Dose Admin Acetaminophen (Tylenol Tab) 500 mg ONCE STAT PO 05/08/17 15:39 05/08/17 15:41 DC 05/08/17 15:58 Procedures/MDM ER COURSE: I kept the patient and/or family informed of laboratory and diagnostic imaging results throughout the emergency room course. MEDICAL DECISION MAKING: This is a 22-year-old female who presents with dysuria and urgency 3 days. Vital signs were reviewed. Patient is afebrile. Patient is not hypoxic. Patient is nontoxic or ill-appearing. Patient's urine shows 3+ leukocytes with no nitrites. Urine test negative. Low suspicion for ovarian torsion , PID, tuboovarian abscess, ectopic , bowel obstruction, pyelonephritis , UTI, appendicitis, cervicitis, septic . Patient was given Tylenol in the ED. Tolerated well with no adverse reaction. DISCHARGE: At this time, patient is stable for discharge and outpatient management with no new complaints during the ER course. Patient was sent home with Macrobid and Pyridium. Patient will be discharged home with instructions to recheck for new or worsening symptoms such as fever, nausea, weakness, LOC and to follow up with primary care in the next 1-2 days. Patient was advised to return to the ER for any new or worsening symptoms. Plan was discussed and patient and/or family understands and agrees. Home instructions were given. Departure Diagnosis: Primary Impression: Cystitis Condition: Stable Patient Instructions: Cystitis Additional Instructions: Call your primary care doctor TOMORROW for an appointment during the next 1-2 days.See the doctor sooner or return here if your condition worsens before your appointment time. RYLAN HUA PA-C May 08, 2017 16:13
== END 2017-05-08 16:22 | disposition home or self-care (01) ==
LOC: FTE 14:17
DX: N30.90 Cystitis, unspecified without hematuria (principal); R10.2 Pelvic and perineal pain
CPT/HCPCS: 81003; 87086; 87591; Z7502; Z7610; 99283

== ENCOUNTER 2017-07-21 18:28 | Emergency (ER) | payer OTHER ==
[~2017-07-21] VITALS: Ht 165.1 cm; Wt 63.5 kg
[~2017-07-21 18:28] MED LIST changes: -BENZ100C70 PO; -LACT10SO5 PO; -METH500T PO; -NAPR-260 PO; +PHEN-537 PO; -PREN1TAB9 PO
[2017-07-21 18:33] VITALS: Ht 165.1 cm; Wt 63.5 kg
[2017-07-21] MEDS ORDERED: SOD CHLORIDE 0.9% 1,000 ML IV ONE (20:00)
[2017-07-21 20:27] LABS: ADD UMIC NO; UR ASCORBIC ACID NEGATIVE (NEGATIVE); UR BILIRUBIN (Dip) NEGATIVE (NEGATIVE); UR BLOOD (Dip) NEGATIVE (NEGATIVE); UR CLARITY CLEAR (CLEAR); UR COLOR YELLOW (YELLOW); UR GLUCOSE (Dip) NEGATIVE (NEGATIVE); UR KETONES (Dip) 1+ mg/dL (NEGATIVE); UR LEUKOCYTE ESTERASE (Dip) NEGATIVE Leu/ul (NEGATIVE); UR NITRITE (Dip) NEGATIVE (NEGATIVE); UR SPECIFIC GRAVITY (Dip) 1.026 (1.003-1.030); UR TOTAL PROTEIN (Dip) NEGATIVE (NEGATIVE); UR UROBILINOGEN (Dip) NEGATIVE (NEGATIVE)
[2017-07-21 20:42] LABS: BASOPHILS % 0.7 % (0.0-2.0); EOSINOPHILS # 0.1 10^3/ul (0.0-0.5); EOSINOPHILS % 2.3 % (0.0-7.0); HEMATOCRIT 34.8 % (37.0-47.0); HEMOGLOBIN 11.9 g/dl (12.0-16.0); LYMPHOCYTES # 3.4 10^3/ul (0.8-2.9); LYMPHOCYTES % 60.4 % (15.0-51.0); MEAN CORPUSCULAR HEMOGLOBIN 31.4 pg (29.0-33.0); MEAN CORPUSCULAR HGB CONC 34.2 g/dl (32.0-37.0); MEAN CORPUSCULAR VOLUME 91.8 fl (82.0-101.0); MEAN PLATELET VOLUME 9.5 fl (7.4-10.4); MONOCYTE # 0.3 10^3/ul (0.3-0.9); MONOCYTES % 6.1 % (0.0-11.0); NEUTROPHIL # 1.7 10^3/ul (1.6-7.5); NEUTROPHILS % 30.3 % (39.0-77.0); PLATELET COUNT 274 10^3/UL (140-415); RED BLOOD COUNT 3.79 10^6/ul (4.20-5.40); RED CELL DISTRIBUTION WIDTH 12.7 % (11.5-14.5); WHITE BLOOD COUNT 5.6 10^3/ul (4.8-10.8)
[2017-07-21 21:07] LABS: ALBUMIN 4.3 g/dl (3.3-4.9); ALBUMIN/GLOBULIN RATIO 1.19; CALCIUM 9.5 mg/dl (8.4-10.2); CREATININE 0.67 mg/dl (0.44-1.00); POTASSIUM 3.6 mmol/L (3.5-5.1); TOTAL PROTEIN 7.9 g/dl (6.1-8.1)
[2017-07-21] MEDS ORDERED: ACETAMINOPHEN 325 MG TAB PO ONE (21:30)
--- NOTE | 2017-07-21 21:55 | RADRPT ---
PROCEDURE: US OB. CLINICAL INDICATION: Vaginal bleeding status post taking medication . Clinical estimate gestational age based on last menstrual period is 9 weeks 3 days TECHNIQUE: Transabdominal views of the pelvis are available for review. COMPARISON: No prior studies are available for comparison. FINDINGS: No intrauterine is seen. The uterus measures 8.2 x 4.7 x 6.5 cm. There is heterogeneity of endometrial echotexture. The thickness of the endometrium equals 1 cm. There is vascular flow in th e endometrium in the fundus. Color flow and spectral analysis demonstrates normal arterial flow in t he ovaries. Bilateral ovaries are unremarkable. No adnexal mass or free intrapelvic fluid is seen. IMPRESSION: No intrauterine seen. Heterogeneity of endometrial echotexture with vascular flow in the e ndometrium in the fundus. Retained products of conception are possible. No ectopic seen. E ctopic is not excluded. Correlation with serial quantitative beta HCGs and follow-up ultra sound is recommended. Please see above. RPTAT: HJES .Drew Saxena MD, MD Date Time Electronically viewed and signed by .Drew Saxena MD, on 07/21/2017 21:54 .S/
[2017-07-21] MEDS ORDERED: ACET500C5 PO (22:26)
[2017-07-21 23:00] VITALS: BP 114/82; PULSE 66; RESP 18; TEMP 98.3
--- NOTE | 2017-07-22 00:18 | ERD ---
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 States that her last menses was on May 16, 2017. Reports that she has passed some vaginal bleeding, clots and tissue since taking Cytotec on July 05, 2017. Reports that she had a previous ultrasound showing that she was 7 weeks . Reports that her vagina feels uncomfortable. Denies any dysuria, urgency, frequency, vaginal discharge , abdominal pain, nausea, vomiting, diarrhea, constipation. States that she obtain the [facility]. Reports that she tried to walk with her PRINTING EQUIPMENT MECHANIC APPRENTICE however the aerospace technician was in the office 2 days ago when she followed up for further care and treatment therefore she presents to the ED for further evaluation. ROS All systems reviewed and are negative except as per history of present illness. Medications Home Meds Active Scripts Acetaminophen* (Tylophen*) 500 Mg Capsule, 1 CAP PO Q6H Y for PAIN AND OR ELEVATED TEMP, #20 CAP Prov:EMERSON GOLD PA-C 07/21/17 Phenazopyridine Hcl* (Pyridium*) 100 Mg Tab, 100 MG PO TID Y for URINARY PAIN, # 8 TAB Prov:RYLAN HUA PA-C 05/08/17 Nitrofurantoin Monohyd Macrocr* (Macrobid*) 100 Mg Capsr, 100 MG PO BID for 7 Days, CAP Prov:RYLAN HUA PA-C 05/08/17 Acetaminophen* (Tylenol*) 325 Mg Tablet, 2 TAB PO Q8 Y for PAIN AND OR ELEVATED TEMP, #20 TAB Prov:GERRI RECINOS PA-C 12/08/16 Hydrocodone/Acetaminophen (Allgood 5-325 Tablet) 1 Each Tablet, 1 TAB PO Q6H Y for PAIN, #7 TAB Prov:LIBIA SIMON PA-C 06/28/16 Hydrocortisone Acetate* (Anusol-HC*) 25 Mg/Supp.rect Supp.rect, 1 SUPP WA BID Y for HEMORROID PAIN/ITCHING, #24 SUPP.RECT Prov:LIBIA SIMON PA-C 05/18/16 Docusate Sodium* (Colace*) 100 Mg Capsule, 100 MG PO TID, #30 CAP Prov:NATHANAELSTACEYGURPREETYousifLIBIA PA-C 05/18/16 Prednisone* (Prednisone*) 20 Mg Tab, 60 MG PO DAILY for 5 Days, TAB Prov:GABRIELLEBENIHYUNELAINA Emily DO 03/03/16 Methocarbamol* (Robaxin*) 750 Mg Tablet, 750 MG PO TID, #20 TAB Prov:EMMIE VORATrish DO 03/03/16 Hydrocodone Bit-Acetaminophen* (Allgood*) 7.5-325 Tablet, 1 TAB PO Q4H Y for PAIN , #20 TAB Prov:KURTMARIA FERNANDABENIEMMIE Diaz DO 03/03/16 Hydrocodone Bit-Acetaminophen* (Allgood*) 5-325 Mg Tab, 1 TAB PO Q6 Y for PAIN, # 10 TAB Prov:GT LUND PA-C 01/26/16 Cyclobenzaprine Hcl* (Cyclobenzaprine Hcl*) 10 Mg Tablet, 10 MG PO Q8 Y for MUSCLE SPASMS, #20 TAB Prov:GT LUND PA-C 01/26/16 Tramadol HCl (Tramadol HCl) 50 Mg Tablet, 50 MG PO Q4 Y for PAIN, #20 TAB Prov:GT LUND PA-C 01/26/16 Nitrofurantoin Monohyd Macrocr* (Macrobid*) 100 Mg Capsr, 100 MG PO BID for 7 Days, CAP Prov:GT LUND PA-C 01/26/16 Hydrocodone Bit-Acetaminophen* (Allgood*) 5-325 Mg Tab, 1 TAB PO Q6 Y for PAIN, # 20 TAB Prov:ERLINDA PAPPAS 10/23/15 Dextromethorphan Hb-Promethazine Hcl (Promethazine DM Syrup) 180 Ml Syrup, 10 ML PO Q6H Y for COUGH, #4 OZ Prov:REMY GRIFFITH MD 10/17/15 Tramadol HCl (Tramadol HCl) 50 Mg Tablet, 50 MG PO Q6 Y for PAIN, #10 TAB Prov:REMY GRIFFITH MD 10/17/15 Allergies Allergies: Coded Allergies: ibuprofen (Verified Allergy, Intermediate, 06/28/16) PMhx/Soc Medical and Surgical Hx: pt denies Surgical Hx History of Surgery: No Anesthesia Reaction: No Hx Neurological Disorder: No Hx Respiratory Disorders: No Hx Cardiac Disorders: No Hx Psychiatric Problems: No Hx Miscellaneous Medical Probl: Yes (Miscarriage) Hx Alcohol Use: No Hx Substance Use: No Hx Tobacco Use: No Smoking Status: Never smoker Physical Exam Vitals Vital Signs Date Time Temp Pulse Resp B/P Pulse Ox O2 Delivery O2 Flow Rate FiO2 07/21/17 23:00 98.3 66 18 114/82 100 Room Air 07/21/17 18:33 97.9 95 20 118/78 100 Physical Exam Const: [id number], well-nourished. In no acute distress. Head: Atraumatic, normocephalic Eyes: Normal Conjunctiva without injection. No purulent discharge. ENT: Normal external ear, nose. Moist oropharynx without tonsillar exudates. Non -erythematous pharynx. Uvula midline. No drooling. No trismus. Neck: No cervical midline tenderness. Full range of motion. No meningismus. No cervical lymphadenopathy. No JVD. Resp: Clear to auscultation bilaterally. No wheezing, rhonchi, rales, or crackles. No accessory muscle use. No retractions. Cardio: Regular rate and rhythm. No murmurs, rubs or gallops. Abd: Soft, nontender, non distended. Normal bowel sounds. No palpable masses. No rebound tenderness. No guarding. Negative McBurney's point. Negative psoas sign. Negative obturator sign. : See exam in MDM. Skin: No petechiae or rashes Back: No midline tenderness. No CVA tenderness. Ext: No cyanosis, or edema. Neur: Awake and alert. Normal gait. Normal coordination. Psych: Normal Mood and Affect Result Diagram: 07/21/17 2019 Results 24 hrs Laboratory Tests Test 07/21/17 20:07 07/21/17 20:19 Urine Color YELLOW Urine Clarity CLEAR Urine pH 5.0 Urine Specific [place] 1.026 Urine Ketones 1+mg/dL Urine Nitrite NEGATIVEmg/dL Urine Bilirubin NEGATIVEmg/dL Urine Urobilinogen NEGATIVEmg/dL Urine Leukocyte Esterase NEGATIVELeu/ul Urine Hemoglobin NEGATIVEmg/dL Urine Glucose NEGATIVEmg/dL Urine Total Protein NEGATIVEmg/dl White Blood Count 5.610^3/ul Red Blood Count 3.7910^6/ul Hemoglobin 11.9g/dl Hematocrit 34.8% Mean Corpuscular Volume 91.8fl Mean Corpuscular Hemoglobin 31.4pg Mean Corpuscular Hemoglobin Concent 34.2g/dl Red Cell Distribution Width 12.7% Platelet Count 22159^3/UL Mean Platelet Volume 9.5fl Neutrophils % 30.3% Lymphocytes % 60.4% Monocytes % 6.1% Eosinophils % 2.3% Basophils % 0.7% Nucleated Red Blood Cells % 0.0/100WBC Neutrophils # 1.710^3/ul Lymphocytes # 3.410^3/ul Monocytes # 0.310^3/ul Eosinophils # 0.110^3/ul Basophils # 0.010^3/ul Nucleated Red Blood Cells # 0.010^3/ul Sodium Level 141mmol/L Potassium Level 3.6mmol/L Chloride Level 106mmol/L Carbon Dioxide Level 26mmol/L Anion Gap 13 Blood Urea Nitrogen 9mg/dl Creatinine 0.67mg/dl Glucose Level 89mg/dl Calcium Level 9.5mg/dl Total Bilirubin 0.0mg/dl Direct Bilirubin 0.00mg/dl Indirect Bilirubin 0.0mg/dl Aspartate Amino Transf (AST/SGOT) 16IU/L Alanine Aminotransferase (ALT/SGPT) 19IU/L Alkaline Phosphatase 49IU/L Total Protein 7.9g/dl Albumin 4.3g/dl Globulin 3.60g/dl Albumin/Globulin Ratio 1.19 Lipase 68U/L Beta HCG, Quantitative 543.2mIU/ml Current Medications Medications (Trade) Dose Ordered Sig/Leonel Route PRN Reason Start Time Stop Time Status Last Admin Dose Admin Sodium Chloride (NS) 1,000 ml @ 1,000 mls/hr Q1H ONCE IV 07/21/17 20:00 07/21/17 20:59 DC 07/21/17 20:38 Acetaminophen (Tylenol Tab) 650 mg ONCE ONCE PO 07/21/17 21:30 07/21/17 21:31 DC Procedures/MDM 22-year-old female patient with no significant past medical history is a A1 presents to the ED complaining of vaginal bleeding that is brown in color that started after taking Cytotec and passing clots and tissue. Patient is afebrile nontoxic appearing. An ultrasound, beta-hCG, CBC, type and RH, UA was ordered to evaluate patient. Toradol was ordered to further treat patient and her pain. CBC: No evidence of severe infection or anemia Urine: No elevation in nitrites, leukocyte esterase, hematuria. No evidence of UTI Rh: B positive No indication for Rhogam at this time. beta Hc.2 PROCEDURE: US OB. CLINICAL INDICATION: Vaginal bleeding status post taking medication . Clinical estimate gestational age based on last menstrual period is 9 weeks 3 days TECHNIQUE: Transabdominal views of the pelvis are available for review. COMPARISON: No prior studies are available for comparison. FINDINGS: No intrauterine is seen. The uterus measures 8.2 x 4.7 x 6.5 cm. There is heterogeneity of endometrial echotexture. The thickness of the endometrium equals 1 cm. There is vascular flow in the endometrium in the fundus. Color flow and spectral analysis demonstrates normal arterial flow in the ovaries. Bilateral ovaries are unremarkable. No adnexal mass or free intrapelvic fluid is seen. IMPRESSION: No intrauterine seen. Heterogeneity of endometrial echotexture with vascular flow in the endometrium in the fundus. Retained products of conception are possible. No ectopic seen. Ectopic is not excluded. Correlation with serial quantitative beta HCGs and follow-up ultrasound is recommended. Please see above. Pelvic Exam: Photographic Printer present Abdomen: [Nontender] External Genitalia: [Normal Skin] Speculum: [Normal vaginal mucosa, normal cervical discharge] Bimanual: [No adnexal masses or tenderness, No CMT] Cervix with slight blood clot noted in the cervical opening. No tissue noted. Patient likely has a continuation of her miscarriage and could likely experience bleeding for another 2 weeks. Patient's bleeding symptoms have stabilized while in the department. Low suspicion for symptomatic anemia, ectopic , sepsis, PID, appendicitis, ovarian torsion, tubo-ovarian abscess, surgical abdomen, or other emergent conditions. Discussed with the laborist on-call, Dr. Hartman who stated that patient can be managed on outpatient basis and to follow-up with PRINTING EQUIPMENT MECHANIC APPRENTICE in 2 days for further evaluation and treatment. Discharge medications: Tylenol Patient to follow up with PRINTING EQUIPMENT MECHANIC APPRENTICE in 2 days for further evaluation and treatment. Patient is to return sooner to the ED for any worsening symptoms. Patient's questions were answered. Patient understood and agreed with discharge plan. Departure Diagnosis: Primary Impression: Vaginal bleeding Condition: Stable Patient Instructions: Miscarriage Referrals: [facility] ([facility]) [facility] YOU HAVE RECEIVED A MEDICAL SCREENING EXAM AND THE RESULTS INDICATE THAT YOU DO NOT HAVE A CONDITION THAT REQUIRES URGENT TREATMENT IN THE EMERGENCY DEPARTMENT. FURTHER EVALUATION AND TREATMENT OF YOUR CONDITION CAN WAIT UNTIL YOU ARE SEEN IN YOUR DOCTORS OFFICE WITHIN THE NEXT 1-2 DAYS. IT IS YOUR RESPONSIBILITY TO MAKE AN APPOINTMENT FOR FOLOW-UP CARE. IF YOU HAVE A PRIMARY DOCTOR --you should call your primary doctor and schedule an appointment IF YOU DO NOT HAVE A PRIMARY DOCTOR YOU CAN CALL OUR PHYSICIAN REFERRAL HOTLINE AT IF YOU CAN NOT AFFORD TO SEE A PHYSICIAN YOU CAN CHOSE FROM THE FOLLOWING [facility] [address] [facility]. [facility] [address] [facility]. [facility] [address] [facility] [address] [facility] [address] [facility]. [facility] [address] [facility]. [facility] YOU HAVE RECEIVED A MEDICAL SCREENING EXAM AND THE RESULTS INDICATE THAT YOU DO NOT HAVE A CONDITION THAT REQUIRES URGENT TREATMENT IN THE EMERGENCY DEPARTMENT. FURTHER EVALUATION AND TREATMENT OF YOUR CONDITION CAN WAIT UNTIL YOU ARE SEEN IN YOUR DOCTORS OFFICE WITHIN THE NEXT 1-2 DAYS. IT IS YOUR RESPONSIBILITY TO MAKE AN APPOINTMENT FOR FOLOW-UP CARE. IF YOU HAVE A PRIMARY DOCTOR --you should call your primary doctor and schedule and appointment IF YOU DO NOT HAVE A PRIMARY DOCTOR YOU CAN CALL OUR PHYSICIAN REFERRAL HOTLINE AT . IF YOU CAN NOT AFFORD TO SEE A PHYSICIAN YOU CAN CHOSE FROM THE FOLLOWING [facility] INSTITUTIONS: [facility] [address] [place] [address] [facility] [address] [place] [address] [facility] [address] [place] [address] PRINTING EQUIPMENT MECHANIC APPRENTICE [place] [address] [facility] [address] [place] [id number] OFFICE FAX , [place] [address] [place], [place] [id number] [address] CORDERO, [place] [address] [place] [address] [address] WILKINS, [facility] [address] [employer] [address] [address], [facility] [address] [facility], [place] [address] [facility] [address] [place] [address] [phone] [facility] [address] - [address] PUCKETT, [place] [address] [facility]. [address], [facility] [address] [address] [place], [place] [address] [facility]. [address], [facility] [address] [address] ROBB, [facility] [address] [place], [place] [id number] [facility] Hours: 8:00 am - 5:00 pm Additional Instructions: Call your PRINTING EQUIPMENT MECHANIC APPRENTICE for an appointment during the next 2-3 days for further care and treatment of your . See the doctor sooner or return here if your condition worsens before your appointment time. EMERSON GOLD PA-C Jul 22, 2017 00:18 EMERSON GOLD PA-C Jul 22, 2017 00:18
== END 2017-07-21 23:01 | disposition home or self-care (01) ==
LOC: FTE 18:28
DX: O20.9 Hemorrhage in early pregnancy, unspecified (principal); R10.2 Pelvic and perineal pain; Z3A.01 Less than 8 weeks gestation of pregnancy
CPT/HCPCS: 76801; 80053; 81003; 83690; 84702; 85025; 86900; 86901; J7030; Z7502; Z7610

== ENCOUNTER 2017-08-11 16:38 | Emergency (ER) | payer OTHER ==
[~2017-08-11] VITALS: Wt 68.6 kg
[~2017-08-11 16:38] MED LIST changes: +ACET500C5 PO
--- NOTE | 2017-08-11 18:49 | ERD ---
ER Documentation Chief Complaint Chief Complaint PELVIC PAIN FOLLOWING PLAN B MED HPI 22 yo female presents with pelvic pain and intermitted vaginal bleeding after chemical termination of a with Cytotec on July 05, 2017. Patient reports she last had intercourse on August 05, states she was not bleeding at that time. Patient reports she did not follow-up at SCHEDULING CLERK as discussed in her last visit here in July. ROS All systems reviewed and are negative except as per history of present illness. Medications Home Meds Active Scripts Acetaminophen* (Tylophen*) 500 Mg Capsule, 1 CAP PO Q6H Y for PAIN AND OR ELEVATED TEMP, #20 CAP Prov:EMERSON GOLD PA-C 07/21/17 Phenazopyridine Hcl* (Pyridium*) 100 Mg Tab, 100 MG PO TID Y for URINARY PAIN, # 8 TAB Prov:RYLAN HUA PA-C 05/08/17 Nitrofurantoin Monohyd Macrocr* (Macrobid*) 100 Mg Capsr, 100 MG PO BID for 7 Days, CAP Prov:RYLAN HUA PA-C 05/08/17 Acetaminophen* (Tylenol*) 325 Mg Tablet, 2 TAB PO Q8 Y for PAIN AND OR ELEVATED TEMP, #20 TAB Prov:GERRI RECINOS PA-C 12/08/16 Hydrocodone/Acetaminophen ([place] 5-325 Tablet) 1 Each Tablet, 1 TAB PO Q6H Y for PAIN, #7 TAB Prov:LIBIA SIMON PA-C 06/28/16 Hydrocortisone Acetate* (Anusol-HC*) 25 Mg/Supp.rect Supp.rect, 1 SUPP HI BID Y for HEMORROID PAIN/ITCHING, #24 SUPP.RECT Prov:LIBIA SIMON PA-C 05/18/16 Docusate Sodium* (Colace*) 100 Mg Capsule, 100 MG PO TID, #30 CAP Prov:LIBIA SIMON PA-C 05/18/16 Prednisone* (Prednisone*) 20 Mg Tab, 60 MG PO DAILY for 5 Days, TAB Prov:EMMIE VORA DO 03/03/16 Methocarbamol* (Robaxin*) 750 Mg Tablet, 750 MG PO TID, #20 TAB Prov:KENNEDI VORAS RenTrish DO 03/03/16 Hydrocodone Bit-Acetaminophen* ([place]*) 7.5-325 Tablet, 1 TAB PO Q4H Y for PAIN , #20 TAB Prov:EMMIE VORATrish DO 03/03/16 Hydrocodone Bit-Acetaminophen* ([place]*) 5-325 Mg Tab, 1 TAB PO Q6 Y for PAIN, # 10 TAB Prov:GT LNUD PA-C 01/26/16 Cyclobenzaprine Hcl* (Cyclobenzaprine Hcl*) 10 Mg Tablet, 10 MG PO Q8 Y for MUSCLE SPASMS, #20 TAB Prov:GT LUND PA-C 01/26/16 Tramadol HCl (Tramadol HCl) 50 Mg Tablet, 50 MG PO Q4 Y for PAIN, #20 TAB Prov:GT LUND PA-C 01/26/16 Nitrofurantoin Monohyd Macrocr* (Macrobid*) 100 Mg Capsr, 100 MG PO BID for 7 Days, CAP Prov:GT LUND PA-C 01/26/16 Hydrocodone Bit-Acetaminophen* ([place]*) 5-325 Mg Tab, 1 TAB PO Q6 Y for PAIN, # 20 TAB Prov:ERLINDA PAPPAS 10/23/15 Dextromethorphan Hb-Promethazine Hcl (Promethazine DM Syrup) 180 Ml Syrup, 10 ML PO Q6H Y for COUGH, #4 OZ Prov:REMY GRIFFITH MD 10/17/15 Tramadol HCl (Tramadol HCl) 50 Mg Tablet, 50 MG PO Q6 Y for PAIN, #10 TAB Prov:REMY GRIFFITH MD 10/17/15 Allergies Allergies: Coded Allergies: ibuprofen (Verified Allergy, Intermediate, 08/11/17) PMhx/Soc History of Surgery: No Anesthesia Reaction: No Hx Neurological Disorder: No Hx Respiratory Disorders: No Hx Cardiac Disorders: No Hx Psychiatric Problems: No Hx Miscellaneous Medical Probl: Yes (Miscarriage) Hx Alcohol Use: No Hx Substance Use: No Hx Tobacco Use: No Smoking Status: Never smoker Physical Exam Vitals Vital Signs Date Time Temp Pulse Resp B/P Pulse Ox O2 Delivery O2 Flow Rate FiO2 08/11/17 16:47 81.0 83 18 121/61 99 Vitals stable, triage notes reviewed Physical Exam Const: Well-nourished well-hydrated well-appearing 22-year-old female in no acute distress Head: Eyes: ENT: Neck: Resp: Respirations even and unlabored no respiratory distress Cardio: Abd: Soft, non tender, non distended, no CVA tenderness Skin: Back: No midline or flank tenderness Ext: Neur: Awake and alert Psych: Normal Mood and Affect Results 24 hrs Laboratory Tests Test 08/11/17 19:07 Bedside Urine pH (LAB) 7.0 Bedside Urine Protein (LAB) Negative Bedside Urine Glucose (UA) Negative Bedside Urine Ketones (LAB) Negative Bedside Urine Blood 2+ Bedside Urine Nitrite (LAB) Negative Bedside Urine Leukocyte Esterase (L Negative Procedures/MDM This 22-year-old female presents to emergency department for evaluation of vaginal bleeding, patient reports that she had a chemical termination of with Cytotec last month and has not stopped bleeding since. Patient goes on to say she did have a week of intermittent bleeding with brown pretty discharge, patient also reports she had sexual relations during that time. Emergency room course includes history, physical exam, urinalysis, and UA hCG.. Analysis negative for evidence of , positive for blood not an abnormal finding with menstruation. Patient is instructed to follow-up with her automotive consultant for further evaluation and for irregular vaginal bleeding after Cytotec. Patient is stable with no new complaints during ER course, clinically there is no current evidence to suggest , uterine infection, uterine perforation,, sepsis, acute abdomen, Jackson tract infection, pyelonephritis or any other emergent condition appearing to require further evaluation or hospitalization. I feel the patient is stable for discharge at this time. I have discussed results, examination findings, the treatment plan with the patient and family present prior to discharge. Indications for emergent reevaluation, side effects of medication were also discussed. All questions were answered. Patient verbalizes understanding and agrees with plan of care. Departure Diagnosis: Primary Impression: Dysmenorrhea, unspecified Condition: Good Patient Instructions: Dysmenorrhea Referrals: SCHEDULING CLERK REFERRAL LIST Additional Instructions: Thank you for for coming to [facility] for your care today. Please ask your nurse or provider if you have questions about your care today and do not leave until all your questions have been answered. Please use any medications given as directed and follow-up with your doctor (or the doctor you were referred to) in the next 2-3 days. If you do not have a primary care doctor you may follow up at the [facility] (listed below). You may also use motrin and tylenol as needed for fever and/or pain unless instructed otherwise by your provider or nurse. Indications for more urgent follow-up have been discussed, but you may return to the Emergency Department at ANY time for any worrisome or worsening symptoms. If you have abdominal pain, please know that no test or exam you received is perfect and you should follow up within 8 hours for continued pain. If you had any imaging studies today, such as an X-Ray or CT Scan, these studies will be reviewed later by a radiologist. You will be called if there are important findings that were not identified today, so make sure the contact information you provided at registration is correct. If you received any narcotic pain control medicine today, such as Vicodin, Morphine or Dilaudid, your coordination and judgment may be affected for a number of hours. Please do not drive or operate heavy machinery, and you may want someone to assist you at home. If you were given a prescription for narcotic medication, be aware that it is very addictive- use sparingly and only if necessary. MARK LYMAN Aug 11, 2017 18:49
[2017-08-11 19:08] LABS: URINE BLOOD (Dip) POC 2+ (NEGATIVE)
== END 2017-08-11 19:59 | disposition home or self-care (01) ==
LOC: FTE 16:38
DX: N94.6 Dysmenorrhea, unspecified (principal)
CPT/HCPCS: 81003; Z7502; 99282